=== PATIENT | male | born 1995 | race Caucasian/White ===

== ENCOUNTER 2019-02-26 13:31 | Observation (INO) ==
[2019-02-26] MEDS ORDERED: SODIUM CHLORIDE 0.9% 1000ML 1,000 ML IV ONE (14:45)
[2019-02-26] MEDS ORDERED: LIDOCAINE/EPINE 2% 1:100,000 20ML INFIL ONE (14:50)
[2019-02-26] MEDS ORDERED: BENZOCAINE/TETRACAIN/BUTAM CAN 200 APPLN/20 GM CAN EXT STA (14:50)
[2019-02-26] MEDS ORDERED: DEXAMETHASONE **PF** INJ 10 MG/ML VIAL IV ONE (14:50)
[2019-02-26] MEDS ORDERED: AMPICILLIN/SULBACTAM SOD 3,000 MG in 0.9 % SODIUM CHLORIDE 100 ML IV STA (14:50)
[2019-02-26 15:02] LABS: Basophils # (auto) 0.07 K/uL (0-0.2); Basophils % (auto) 0.7 %; Eosinophils # (auto) 0.06 K/uL (0-0.5); Eosinophils % (auto) 0.6 %; Hematocrit (blood only) 43.5 % (42-52); Hemoglobin 16.5 g/dL (14.0-18.0); Immature Granulocytes # (auto) 0.02 K/uL (0.00-0.02); Immature Granulocytes % (auto) 0.2 %; Lymphocytes # (auto) 2.05 K/uL (1.2-3.4); Lymphocytes % (auto) 19.1 %; Mean Corpuscular Hgb Conc 37.9 g/dL (32-36); Mean Corpuscular Volume 84.6 fL (80-100); Mean Platelet Volume 10.2 fL (7.4-10.4); Monocytes # (auto) 1.42 K/uL (0.11-0.59); Monocytes % (auto) 13.2 %; Neutrophils # (auto) 7.12 K/uL (1.4-6.5); Neutrophils % (auto) 66.2 %; Platelet Count 296 K/uL (130-400); RDW Coefficient of Variation 11.9 % (11.5-14.5); RDW Standard Deviation 36.8 fL (36.4-46.3); Red Blood Count 5.14 M/uL (4.7-6.1); White Blood Count 10.74 K/uL (4.8-10.8)
--- NOTE | 2019-02-26 15:09 | History & Physical Report ---
Date of Service February 26, 2019 Assessment & Plan (1) History of peritonsillar abscess: incision and drainage explained risks History of Present Illness Chief Complaint: sore throat Primary Care Provider: NO PCP 23 yo with left [employer] Past Med/Surg History Social History Feels Safe at Home: Yes Smoking Status: Never smoker Physical Exam Constitutional: + ill appearing Eyes: PERRL, conjunctivae normal, anicteric sclerae ENMT: Mouth: + oropharynx abnormality (left peritonsillar swelling, uvular edema and shift to right) Neck: trachea midline, no thyromegaly Respiratory: normal respiratory effort, lungs clear to auscultation Cardiovascular: RRR, no murmur, no edema Results & Data Vital Signs (Past 12 Hours) Vital Signs Temp Pulse Resp BP Pulse Ox 02/26/19 13:35 37.2 C 119 H 16 123/72 96
[2019-02-26 15:18] LABS: BUN Creatinine Ratio 13.2 (10-20); Calcium 9.4 mg/dl (8.5-10.1); Creatinine Clr Calc Pharmacy 96.3 ml/min; Est GFR (African American) 134.4; Potassium 3.8 mmol/L (3.5-5.1)
[2019-02-26] MEDS ORDERED: DEXAMETHASONE SOD INJ 4 MG/ML VIAL ONE (15:24)
[2019-02-26] MEDS ORDERED: SUCCINYLCHOLINE CHLORIDE 20 MG/ML 10 ML VIAL ONE (15:24)
[2019-02-26] MEDS ORDERED: PROPOFOL IV EMULSION 10 MG/ML 20 ML VIAL IV ONE (15:24)
[2019-02-26] MEDS ORDERED: LIDOCAINE 2% 20 MG/ML 5 ML SYR IV ONE (15:24)
[2019-02-26] MEDS ORDERED: MIDAZOLAM HCL 1 MG/ML 2ML VIAL ONE (15:24)
[2019-02-26] MEDS ORDERED: ROCURONIUM BROMIDE 10 MG/ML 5 ML VIAL ONE (15:24)
[2019-02-26] MEDS ORDERED: ONDANSETRON INJ 2 MG/ML 2 ML VIAL ONE (15:24)
[2019-02-26] MEDS ORDERED: fentaNYL citrate 100 MCG/2 ML VIAL ONE ×2 (15:24→15:25)
[2019-02-26] MEDS ORDERED: GLYCOPYRROLATE 0.2 MG/ML VIAL ONE (15:24)
[2019-02-26] MEDS ORDERED: NEOSTIGMINE METHYLSULFATE 5 MG/5 ML SYR ONE (15:24)
--- NOTE | 2019-02-26 15:28 | Anesthesiology Consultation ---
Date of Service February 26, 2019 Assessment & Plan Chart Review Chart Review: Acceptable Risk for Surgery (Emergency) and Patient NOT seen in Pre Admission Testing Consults Requested none ASA [id number] Proposed Anesthesia Anesthesia Type: General Risk / Benefits Reviewed With: PT / POA / Parent / Guardian, Accepts Plan and Informed Consent Obtained History Surgery Operation Date: 02/26/19 13:20 Proposed Procedures p Left Peritonsillar Abscess - Chantel Gonsalez MD Height/Weight Height: 1.65 m Weight: 55 kg Allergies Allergy/AdvReac Type Severity Reaction Status Date / Time No Known Allergies Allergy Unverified 02/26/19 15:33 Medications Active Medications Generic Name Dose Route Start Last Admin Trade Name Freq PRN Reason Stop Dose Admin Sodium Chloride 1,000 mls @ 999 mls/hr 02/26/19 14:45 02/26/19 15:08 Nss 1000ml IV 02/26/19 15:45 999 mls/hr .Q1H1M ONE Administration NPO Date Last Intake of Fluids: 02/23/19 Time Last Intake of Fluids: 13:00 Date Last Intake of Solids: 02/23/19 Time Last Intake of Solids: 13:00 Past Medical History Medical History GERD (gastroesophageal reflux disease) Peritonsillar abscess Exercise / Class Metabolic Activity II 4-5 Yardwork/Stairs/Walk up hill Past Surgical History Surgical History History of wisdom tooth extraction S/p bilateral myringotomy with tube placement Past Anesthesia History No Hx of Anesthesia Complications Pt unsure about family anesthesia history due to being adopted History of PONV No Hx of PONV and No Hx of Motion Sickness Social History Smoking Status: Never smoker Do You Dip or Chew Tobacco: No Hx Alcohol Use: No Hx Substance Use: No Review of Systems Respiratory: no cough and no dyspnea Cardiovascular: no chest pain and no dyspnea on exertion Gastrointestinal: no heartburn, no nausea and no vomiting Physical Exam Vital Signs Last Vital Signs Temp 37.2 C 02/26/19 13:35 Pulse 119 H 02/26/19 13:35 Resp 16 02/26/19 13:35 BP 123/72 02/26/19 13:35 Pulse Ox 96 02/26/19 13:35 ENMT Mouth: + small oral opening (Due to pain); no TMJ abnormality and no TMJ clicking Thyromental Distance: > or= 3.5 Finger Breadths Mallampati Class: III Neck normal visual inspection; neck extension not limited Respiratory Auscultation: lungs clear to auscultation bilaterally Cardiovascular Rate/Rhythm: regular rate and regular rhythm Psychiatric Orientation: alert and oriented x 3
[2019-02-26] MEDS ORDERED: ATROPINE SULFATE 0.1 MG/ML 10ML SYR IV PRN (15:33)
[2019-02-26] MEDS ORDERED: fentaNYL citrate 100 MCG/2 ML VIAL IV PRN (15:33)
[2019-02-26] MEDS ORDERED: HYDROmorphone INJ 1 MG/ML SYRINGE IV PRN (15:33)
[2019-02-26] MEDS ORDERED: PHENYLEPHRINE 100MCG/ML 5ML SYR IV PRN (15:33)
[2019-02-26] MEDS ORDERED: ePHEDrine sulfate 50 MG/ML AMP IV PRN (15:33)
[2019-02-26] MEDS ORDERED: ONDANSETRON INJ 2 MG/ML 2 ML VIAL IV PRN ×2 (15:33→16:24)
[2019-02-26] MEDS ORDERED: PROMETHAZINE HCL 12.5 MG in SODIUM CHLORIDE 0.9% 50 ML IV PRN (15:33)
[2019-02-26] MEDS ORDERED: MoRPHine SULFATE 2 MG/ML CARP IV PRN (16:24)
[2019-02-26] MEDS ORDERED: MoRPHine SULFATE 10 MG/ML CARP/VIAL IV PRN (16:24)
[2019-02-26] MEDS ORDERED: HYDROCODONE/ACETAMOPHEN 5/325MG TAB PO PRN ×2 (16:24)
[2019-02-26] MEDS ORDERED: MoRPHine SULFATE 4 MG/ML 1 ML CARP\\VIAL IV PRN (16:24)
[2019-02-26] MEDS ORDERED: ACETAMINOPHEN 325 MG TAB PO PRN (16:24)
--- NOTE | 2019-02-26 16:34 | Emergency Department Note ---
History of Present Illness General Chief complaint: Sore Throat Stated complaint: SORE THROAT W/ FEVER PAST 4 DAYS Time Seen by Provider: 02/26/19 14:19 History of Present Illness Maximum Pain Intensity: 7 23-year-old male who presents the emergency department with complaint of severely painful sore throat and inability to swallow or eat because of the pain. The patient reports that his pain started 4 days ago, and has lost a significant amount of weight because of his inability to eat or drink. The patient reports feeling dehydrated. The patient denies any prior history of strep throat or tonsillitis. He denies any recent runny nose, congestion or cough. He rates his discomfort a 7 out of 10. Allergies Allergy/AdvReac Type Severity Reaction Status Date / Time No Known Allergies Allergy Unverified 02/26/19 15:33 Past Med/Surg History Medical History GERD (gastroesophageal reflux disease) Peritonsillar abscess Surgical History History of wisdom tooth extraction S/p bilateral myringotomy with tube placement Social History Feels Safe at Home: Yes Smoking Status: Never smoker Do You Dip or Chew Tobacco: No Hx Alcohol Use: No Hx Substance Use: No Review of Systems 10 system review was performed and was negative except for pertinent positives and negatives as indicated in history of present illness Physical Exam Vital Signs Vital Signs - 24 hr 02/26/19 13:35 02/26/19 15:32 Temperature 37.2 C 36.7 C Temperature Source Oral Oral Sepsis Recent Fever Within 48 Hours No Sepsis Action Taken by Nursing No Action Required Pulse Rate 119 H Pulse Rate [Apical] 75 Pulse Rhythm [Apical] Regular Respiratory Rate 16 16 Respiratory Effort / Characteristics Non-Labored Spontaneous Respiratory Depth Normal Respiratory Pattern Regular Blood Pressure 123/72 Blood Pressure [Left Arm] 119/76 Blood Pressure Mean 89 Blood Pressure Mean [Left Arm] 90 Blood Pressure Position [Left Arm] Semi-fowlers Pulse Oximetry 96 98 Oxygen Delivery Method Room Air Room Air CONSTITUTIONAL: Healthy and well nourished. Alert and oriented X 3. Patient appears in mild to moderate discomfort. HEENT: Normocephalic, atraumatic. Pupils equal, round and reactive. No facial edema noted. Ears and nares are clear. Examination of the oropharynx shows significant trismus with the patient only able to open his incisors approximately 2 cm. The patient has notable left tonsillar hypertrophy with rightward uvular deviation. NECK: Full active range of motion without discomfort. LYMPHATICS: No cervical chain adenopathy appreciated. RESPIRATORY: Clear to auscultation bilaterally with no wheezing, crackles, rhonchi or stridor. CARDIOVASCULAR: Regular rate and rhythm with no murmurs, rubs or gallops. GASTROINTESTINAL: Bowel sounds present in all quadrants. Soft and nontender to palpation. MUSCULOSKELETAL: Full range of motion of all joints without discomfort. INTEGUMENTARY: No rash or other significant dermatologic conditions noted. HEMATOLOGIC: No ecchymosis or petechiae. PSYCHIATRIC: Positive affect. NEUROLOGIC: No focal neurologic deficits noted. Course Patient history and physical exam were performed. Nurse's notes were reviewed. Vital signs were reviewed and were normal. IV access was established, and labs were drawn. The patient was hydrated with a liter normal saline, and an steroid IV Unasyn and Decadron. Labs were reviewed and were grossly normal. The case was also discussed with Dr. Gonsalez, ENT physician, who came to the emergency department and attempted bedside I&D procedure, however the patient could not tolerate it. The patient was then taken to surgery for further treatment. Please see Dr. Gonsalez's dictation for further treatment and final disposition. Administered Medications Discontinued Medications Benzocaine/Butamben/Tetracaine HCl (Cetacaine) 1 appln EXT NOW STA Stop: 02/26/19 14:51 Last Admin: 02/26/19 15:08 Dose: Not Given Documented by: [id number] Dexamethasone Sodium Phosphate (Decadron Pf) 10 mg IV NOW ONE Stop: 02/26/19 14:51 Last Admin: 02/26/19 15:08 Dose: 10 mg Documented by: [id number] Sodium Chloride (Nss 1000ml) 1,000 mls @ 999 mls/hr IV .Q1H1M ONE Stop: 02/26/19 15:45 Last Admin: 02/26/19 15:08 Dose: 999 mls/hr Documented by: [id number] Lidocaine/Epinephrine (Xylocaine/Epine 2% 1:100,000) 20 ml INFIL ONE ONE Stop: 02/26/19 14:51 Last Admin: 02/26/19 15:08 Dose: Not Given Documented by: [id number] Medical Decision Making Medical Records Attestation: I reviewed the patient's medical records. Home Medications Current Medication List: was personally reviewed by me Laboratory Data Attestation: I reviewed the patient's lab results. Result diagrams: 02/26/19 14:53 02/26/19 14:53 Lab Results 02/26/19 02/26/19 Range/Units 14:53 14:53 WBC 10.74 (4.8-10.8) K/uL RBC 5.14 (4.7-6.1) M/uL Hgb 16.5 (14.0-18.0) g/dL Hct 43.5 (42-52) % MCV 84.6 (80-100) fL MCH 32.1 (25-34) pg MCHC 37.9 H (32-36) g/dL RDW Std Deviation 36.8 (36.4-46.3) fL RDW Coeff of Courtney 11.9 (11.5-14.5) % Plt Count 296 (130-400) K/uL MPV 10.2 (7.4-10.4) fL Immature Gran % (Auto) 0.2 % Neut % (Auto) 66.2 % Lymph % (Auto) 19.1 % [place] % (Auto) 13.2 % Eos % (Auto) 0.6 % Baso % (Auto) 0.7 % Immature Gran # (Auto) 0.02 (0.00-0.02) K/uL Neut # (Auto) 7.12 H (1.4-6.5) K/uL Lymph # (Auto) 2.05 (1.2-3.4) K/uL [place] # (Auto) 1.42 H (0.11-0.59) K/uL Eos # (Auto) 0.06 (0-0.5) K/uL Baso # (Auto) 0.07 (0-0.2) K/uL Sodium 138 (136-145) mmol/L Potassium 3.8 (3.5-5.1) mmol/L Chloride 104 (98-107) mmol/L Carbon Dioxide 26 (21-32) mmol/L Anion Gap 8.0 (3-11) BUN 12 (7-18) mg/dl Creatinine 0.92 (0.6-1.4) mg/dl Est Cr Clr Drug Dosing 96.3 ml/min Est GFR ( Amer) 134.4 Est GFR (Non-Af Amer) 116.0 BUN/Creatinine Ratio 13.2 (10-20) Glucose 78 (70-99) mg/dl Calcium 9.4 (8.5-10.1) mg/dl Blood Pressure Blood Pressure Findings: Normal blood pressure MDM Narrative Impression & Plan Abscess, peritonsillar Discharge Plan Visit Data Chief Complaint: Sore Throat Stated Complaint: SORE THROAT W/ FEVER PAST 4 DAYS ED Provider: Kieran Kinsey ED Midlevel Provider: Francis Puri Discharge Problem: Abscess, peritonsillar Patient Disposition: Being Evaluated by Surgeon Discharge Instructions Interventions: ED Discharge Assessment Last Done: 02/26/19 15:26
--- NOTE | 2019-02-26 16:41 | Operative Report ---
Post Operative Report Pre & Post Diagnosis Operation Date: 02/26/19 13:20 Pre-Op Diagnosis: Left peritonsillar abscess Post-Op Diagnosis: Left peritonsillar abscess Procedure Operation Date: 02/26/19 13:20 Actual Procedures p Left Peritonsillar Abscess(Left) - Chantel Gonsalez MD Surgeon Chantel Gonsalez MD Paving Supervisor None Estimated Blood Loss 10 Findings Consistent with Post-Op Diagnosis Specimens None Anesthesia Type General Complications none Disposition Accompanied Patient To Recovery: No Disposition: Recovery Room Indications 23-year-old with left peritonsillar abscess Description of Procedure He was brought to the operating room, properly identified, and prepped and draped in the usual sterile manner after general endotracheal anesthesia. The mouthgag was placed. The left peritonsillar area was previously injected in the ER. Incision was made using the #12 blade on the soft palate. Abscess cavity was opened using the tonsillar hemostat. Abscess cavity was irrigated and suctioned clean with saline. He tolerated the procedure well and was taken to recovery area in satisfactory condition. I attest to the content of the Intraoperative Record and any orders documented therein. Any exceptions are noted below.
[2019-02-26] MEDS ORDERED: MEPERIDINE HCL 25 MG/ML CARP IV PRN (16:59)
--- NOTE | 2019-02-26 17:10 | Anesthesiology Progress Note ---
Date of Service February 26, 2019 Anesthesia Post Procedure Vital Signs Vital Signs: Temp Pulse Pulse Resp BP BP Pulse Ox 02/26/19 17:05 97.9 F 64 19 124/77 99 02/26/19 16:55 70 14 123/72 100 02/26/19 16:45 75 15 121/75 100 02/26/19 16:36 97.2 F L 89 16 127/83 100 02/26/19 15:32 98.1 F 75 16 119/76 98 02/26/19 13:35 99.0 F 119 H 16 123/72 96 Transfer of Care Handoff Completed per policy Notes Mental Status: alert / awake / arousable and participated in evaluation Patient Amnestic to Procedure: Yes Nausea / Vomiting: adequately controlled Pain: adequately controlled Airway Patency, RR, SpO2: stable & adequate BP & HR: stable & adequate Hydration State: stable & adequate Anesthetic Complications: no major complications apparent and Pt Satisfied with anesthetic care
[2019-02-26] MEDS: AMPICILLIN/SULBACTAM SOD 3,000 MG in 0.9 % SODIUM CHLORIDE 100 ML IV SCH (20:01)
[2019-02-26] MEDS: SODIUM CHLORIDE 0.9% 1000ML 1,000 ML IV SCH (20:02)
[2019-02-27] MEDS: AMPICILLIN/SULBACTAM SOD 3,000 MG in 0.9 % SODIUM CHLORIDE 100 ML IV SCH ×3 (00:51→13:11)
[2019-02-27] MEDS: SODIUM CHLORIDE 0.9% 1000ML 1,000 ML IV SCH (06:09)
--- NOTE | 2019-02-27 10:48 | Surgery Progress Note ---
Date of Service February 27, 2019 Assessment & Plan (1) History of peritonsillar abscess: incision and drainage explained risks Physical Exam Physical Exam: much better, left I and D site open, no drainage, minimal swelling Results & Data Vital Signs (Past 12 Hours) Vital Signs Temp Pulse Resp BP Pulse Ox 02/27/19 03:34 37 C 46 L 14 100/50 L 98 02/26/19 23:35 36.5 C 57 L 14 110/64 97
--- NOTE | 2019-03-01 16:55 | Discharge Summary ---
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 Exam (Per Admitting) Constitutional + ill appearing Eyes PERRL, conjunctivae normal, anicteric sclerae ENMT Mouth: + oropharynx abnormality (left peritonsillar swelling, uvular edema and shift to right) Neck trachea midline, no thyromegaly Respiratory normal respiratory effort, lungs clear to auscultation Cardiovascular RRR, no murmur, no edema Discharge Data Procedures Performed Operation Date: 02/26/19 13:20 Actual Procedures p Left Peritonsillar Abscess(Left) - Chantel Gonsalez MD Hospital Course (1) History of peritonsillar abscess: incision and drainage explained risks did well postop, discharge to home on augmentin
== END 2019-02-27 14:48 | disposition home or self-care (01) ==
LOC: ED 13:31 → OR 15:40 → 3W 15:40
DX: J36 Peritonsillar abscess